=== PATIENT | female | born 1990 | race African-American/Black ===

== ENCOUNTER 2023-05-18 15:38 | Observation (INO) | payer OTHER ==
[~2023-05-18] VITALS: Ht 172.7 cm; Wt 117.9 kg
[2023-05-18] MEDS ORDERED: PREN-96 PO (17:09)
== END 2023-05-18 17:22 | disposition home or self-care (01) ==
LOC: LDRP 15:38
PROVIDERS: ADMIT Obstetrics & Gynecology; ATTEND Obstetrics & Gynecology
DX: O26.893 Other specified pregnancy related conditions, third trimester (principal); M54.50 Low back pain, unspecified; R10.31 Right lower quadrant pain; R11.0 Nausea; Z3A.34 34 weeks gestation of pregnancy; Z87.891 Personal history of nicotine dependence
CPT/HCPCS: 59025; 81002; G0378